=== PATIENT | male | born 1965 | race Two or more races ===

== ENCOUNTER 2016-11-28 14:47 | Emergency (ER) | payer OTHER ==
[2016-11-28 20:41] LABS: Hematocrit 40 % (42-52); Mean Corpuscular HGB Conc 33 g/dl (31-36); Mean Corpuscular Hemoglobin 29 pg (27-31); Mean Corpuscular Volume 88 fL (80-94); Mean Platelet Volume 8 um3 (7.4-10.4); Red Blood Count 4.53 10^6/ul (4.0-5.4); Red Cell Distribution Width 14 % (10.5-15); White Blood Count 10.4 10^3/ul (3.5-10.8)
[2016-11-28 20:58] LABS: Albumin 4.2 g/dL (3.2-5.2); BUN/Creatinine Ratio 9.3 (8-20); Calcium 9.7 mg/dL (8.6-10.3); EGFR African American 93.3 (>60); EGFR Non-African American 72.6 (>60); Globulin 4.2 g/dL (2-4); Total Bilirubin 0.4 mg/dL (0.2-1.0); Total Protein 8.4 g/dL (6.4-8.9)
--- NOTE | 2016-11-28 21:07 | ED ---
Skin Complaint - HPI Summary HPI Summary: 51 male presents with complaints of redness, swelling and painful lower right extremity. Patient states this began on 11/22/16 and it was the back of his knee down to his ankle, however over the past 6 days it has spread both proximal and down to his right foot. It is also became more swollen. He was seen by his primary care provider on 11/22/16 where he was diagnosed with cellulitis and put on cephalexin 500mg BID. He was also seen that same day at urgent care to have an ultra sound and rule out a blood clot. the ultrasound was negative. Patient states the antibiotic medication has not helped as his symptoms have just been getting worse. He admits to a fever/chills over this past weekend but he has not had one today. Denies any recent trauma or injury to his leg. Denies PMHx of diabetes and is not immunocomprimised. He does however have sever eczema flare-ups with discolorations from it on his legs. He has been suffering from a flare up for the past few weeks. Complains of pruritis. He has tried taking Ibuprofen for the pain and has been applying hydrocortisone and neosporin on his leg for his eczema without any relief. Denies any pain with walking or on palpation. Denies weeping or purulent discharge/drainage. No difficulty breathing, chest pain abdominal pain, or numbness/tingling. This has never happened to him before. - History of Current Complaint Chief Complaint: EDGeneral Time Seen by Provider: 11/28/16 19:58 Stated Complaint: POSS CELLULITIS RT LEG Hx Obtained From: Patient Onset/Duration: Started Weeks Ago, Still Present, Worse Since Skin Exposure Onset/Duration: Weeks Ago Timing: Constant Onset Severity: Moderate Current Severity: Severe Pain Intensity: 0 Pain Scale Used: 0-10 Numeric Skin Location: Diffuse - right lower extremity Character: Swelling, Pruritus, Redness Aggravating Symptom(s): Nothing Alleviating Symptom(s): Nothing Associated Signs & Symptoms: Fever - over the past weekend, however not today, Chills Related History: Other: - severe eczema history - Allergy/Home Medications Allergies/Adverse Reactions: Allergies Allergy/AdvReac Type Severity Reaction Status Date / Time Ethanol [From Robitussin] Allergy Unknown Verified 11/07/16 15:27 Reaction Details cough drop Allergy Unknown Uncoded 11/07/16 15:27 Reaction Details PMH/Surg Hx/FS Hx/Imm Hx Endocrine/Hematology History: Denies: Hx Anticoagulant Therapy, Hx Diabetes Cardiovascular History: Reports: Hx Hypertension Respiratory History: Reports: Hx Sleep Apnea Psychiatric History: Reports: Hx Anxiety Infectious Disease History: No Infectious Disease History: Denies: Traveled Outside the [place] in Last 30 Days - Family History Known Family History: Positive: None - Social History Alcohol Use: Rare Substance Use Type: Reports: None Substance Use Comment - Amount & Last Used: Pt denies Smoking Status (MU): Never Smoked Tobacco Review of Systems Positive: Fever, Chills Eyes: Negative Positive: Nasal Discharge Cardiovascular: Negative Respiratory: Negative Genitourinary: Negative Musculoskeletal: Negative Positive: Other - edema, erythema, pruritis right leg Neurological: Negative Psychological: Normal All Other Systems Reviewed And Are Negative: Yes Physical Exam Triage Information Reviewed: Yes Vital Signs On Initial Exam: Initial Vitals Temp Pulse Resp BP Pulse Ox 99.8 F 112 18 174/82 95 11/28/16 15:13 11/28/16 15:13 11/28/16 15:13 11/28/16 15:13 11/28/16 15:13 tachycardia and elevated blood pressure noted. due to infection, will be monitored. Vital Signs Reviewed: Yes Appearance: Positive: Well-Appearing, No Pain Distress, Well-Nourished Skin: Positive: Warm, Skin Color Reflects Adequate Perfusion, Dry, Erythema @ - diffuse erythema right lower extremity from posterior mid-thigh down to foot. 2- 3+ pitting edema, no weeping or drainage noted. indurated and hot to touch. not raised. signs of eczema discoloration and lesions on calf and foot. Full ROM no tenderness on palpation however firm and skin is tight. (-) jannette's sign. sensation and motor intact.. Negative: Weeping Skin/Lesions Head/Face: Positive: Normal Head/Face Inspection Eyes: Positive: Normal ENT: Positive: Nasal congestion Neck: Positive: Supple, Nontender, No Lymphadenopathy Respiratory/Lung Sounds: Positive: Clear to Auscultation, Breath Sounds Present Cardiovascular: Positive: Normal, RRR, Pulses are Symmetrical in both Upper and Lower Extremities - strong, regular 2+ pedal pulses bilaterally Abdomen Description: Positive: Nontender Bowel Sounds: Positive: Present Musculoskeletal: Positive: Strength/ROM Intact, Edema Right. Negative: Jannette Sign Right Neurological: Positive: Normal, Sensory/Motor Intact, Alert, Oriented to Person Place, Time, CN Intact II-III, Reflexes Intact Psychiatric: Positive: Normal Diagnostics - Vital Signs Vital Signs Temp Pulse Resp BP Pulse Ox 11/28/16 20:20 99.3 F 90 16 180/93 97 11/28/16 19:52 98.8 F 91 18 131/63 96 11/28/16 18:49 98.1 F 96 20 163/90 96 11/28/16 15:13 99.8 F 112 18 174/82 95 - Laboratory Lab Results: Lab Results 11/28/16 11/28/16 Range/Units 20:30 20:30 WBC 10.4 (3.5-10.8) 10^3/ul RBC 4.53 (4.0-5.4) 10^6/ul Hgb 13.0 L (14.0-18.0) g/dl Hct 40 L (42-52) % MCV 88 (80-94) fL MCH 29 (27-31) pg MCHC 33 (31-36) g/dl RDW 14 (10.5-15) % Plt Count 261 (150-450) 10^3/ul MPV 8 (7.4-10.4) um3 Neut % (Auto) 71.3 (38-83) % Lymph % (Auto) 16.0 L (25-47) % Kaufman % (Auto) 7.6 (1-9) % Eos % (Auto) 3.8 (0-6) % Baso % (Auto) 1.3 (0-2) % Absolute Neuts (auto) 7.4 (1.5-7.7) 10^3/ul Absolute Lymphs (auto) 1.7 (1.0-4.8) 10^3/ul Absolute Monos (auto) 0.8 (0-0.8) 10^3/ul Absolute Eos (auto) 0.4 (0-0.6) 10^3/ul Absolute Basos (auto) 0.1 (0-0.2) 10^3/ul Absolute Nucleated RBC 0.01 10^3/ul Nucleated RBC % 0 Sodium 132 L (133-145) mmol/L Potassium 4.0 (3.5-5.0) mmol/L Chloride 97 L (101-111) mmol/L Carbon Dioxide 28 (22-32) mmol/L Anion Gap 7 (2-11) mmol/L BUN 10 (6-24) mg/dL Creatinine 1.07 (0.67-1.17) mg/dL Est GFR ( Amer) 93.3 (>60) Est GFR (Non-Af Amer) 72.6 (>60) BUN/Creatinine Ratio 9.3 (8-20) Glucose 123 H (70-100) mg/dL Calcium 9.7 (8.6-10.3) mg/dL Total Bilirubin 0.40 (0.2-1.0) mg/dL AST 18 (13-39) U/L ALT 25 (7-52) U/L Alkaline Phosphatase 80 (34-104) U/L Total Protein 8.4 (6.4-8.9) g/dL Albumin 4.2 (3.2-5.2) g/dL Globulin 4.2 H (2-4) g/dL Albumin/Globulin Ratio 1.0 (1-3) Result Diagrams: 11/28/16 20:30 11/28/16 20:30 Lab Statement: Any lab studies that have been ordered have been reviewed, and results considered in the medical decision making process. - Ultrasound No standard instances Ultrasound Interpretation: Positive (See Comments) - 1. NO EVIDENCE FOR DEEP VENOUS THROMBOSIS. 2. MILDLY PROMINENT RIGHT INGUINAL LYMPH NODES. Ultrasound Interpretation Completed By: Radiologist Course/Dx - Course Course Of Treatment: CBC, CMP, and US to rule out abscess/ DVT of right leg obtained although US was negative on 11/22/16. No fever or increased WBC noted. Labs normal. US negative. Patient was given Claritin to help with pruritis due to swelling and eczema. Denied Benedryl due to drowsy side effects. Discussed options of admission versus outpatient therapy. Due to normal blood work, no fever and under treatment outpatient therapy will be attempted at this time. Keflex will be increased from 2 times a day to 4 times a day and Bactrim will be added 2x a day. Bactroban was prescribed to apply topically rather than the neosporin he was using at home. Also advised he could use Claritin and Eucerin to help with itching and eczema. Aware of worsening symptoms and stressed importance of close follow-up with PCP or return to ED. - Differential Diagnoses - Skin Complaint Differential Diagnoses: Abscess, Cellulitis, Eczema, Lymphangitis, MRSA, Urticaria - Diagnoses Provider Diagnoses: Cellulitis - Physician Notifications Discussed Care Of Patient With: Dr Foster Discharge - Discharge Plan Condition: Stable Disposition: HOME Prescriptions: RX: Cephalexin CAP* [Keflex 500 CAP*] 500 mg PO QID #40 cap Mupirocin 2% CREAM* [Bactroban 2% CREAM*] 1 applic TOPICAL BID #1 tube Sulfamethox/Trimethoprim DS* [Bactrim DS 800/160 TAB*] 1 tab PO BID #20 tab Patient Education Materials: MRSA (Methicillin Resistant Staphylococcus Aureus ) (ED), Cellulitis (ED) Referrals: Katelynn Garcia MD [Primary Care Provider] - Additional Instructions: Take medication as prescribed for the next 10 days. Take with food. Apply antibiotic ointment as needed on leg and emollients such as Eucerin to help with dryness and itching. You may also take OTC Claritin or Benedryl to help with itching. ELEVATE you leg as much as possible. Close follow-up with your primary care provider by this Monday. IF symptoms are not improving or are worsening such as feeling sick, fever/chills, increasing pain redness, swelling please return to ED immediately.
[2016-11-28] MEDS ORDERED: LoraTADine TAB(NF) 10 MG TAB (AUTOSUB to CETIRIZINE) PO ONE (21:55)
--- NOTE | 2016-11-28 22:09 | RAD ---
INDICATION: Right lower extremity swelling. COMPARISON: Comparison is made with a prior right lower extremity venous duplex study from November 22, 2016. TECHNIQUE: Multiple real-time, color flow and Doppler tracings of the right lower extremity were obtained. FINDINGS: The common femoral, femoral, profunda femoral and popliteal veins all demonstrate normal compressibility, augmentation with compression and phasic response with respiration. The posterior tibial and peroneal veins demonstrate normal compressibility and augmentation with compression. There are mildly prominent lymph nodes in the right inguinal region as previously noted. IMPRESSION: 1. NO EVIDENCE FOR DEEP VENOUS THROMBOSIS. 2. MILDLY PROMINENT RIGHT INGUINAL LYMPH NODES.
[2016-11-28] MEDS ORDERED: Sulfamethox/Trimethoprim DS 800/160* TAB PO ONE (22:33)
[2016-11-28 23:01] VITALS: BP 167/76
== END 2016-11-28 22:55 | disposition home or self-care (01) ==
LOC: ED 14:47
DX: L03.115 Cellulitis of right lower limb (principal); I10 Essential (primary) hypertension
CPT/HCPCS: 36415; 80053; 85025; 99283; A9270-GY